=== PATIENT | female | born 1990 | race Caucasian/White ===

== ENCOUNTER 2021-09-17 15:18 | Emergency (ER) | payer SELFPAY ==
[2021-09-17 15:45] VITALS: BP 140/88; PULSE 85; RESP 22; TEMP 36.9; O2SAT 98; BMI 29.2
[2021-09-17 16:01] LABS: UTC Strep Screen (Rapid) Positive (Negative)
--- NOTE | 2021-09-17 16:12 | HMH.EDUTC ---
[facility] [place] Clinical Impression: Strep throat Disposition: Home, Self-Care Condition on Discharge: Good Instructions: DI for Strep Throat, Strep Throat, Amoxicillin Additional Instructions: *Monitor Temp, Over the counter Motrin or Tylenol as directed/as needed Tylenol every 4 hours and Motrin every 6 hours (as long as your family doctor has told you that you can take it) for fever or pain. and straight to ER if unable to lower temp less than 101.0 after medication given *Warm salt water gargles may help to soothe the throat *Throat Lozenges *Warm fluids like tea with honey may help to soothe the throat *Sleep elevated *Humidifier/Vaporizer *If you did not take Penicillin shot or was unable to, start taking antibiotic immediately and make sure that you take it for the FULL length of time although you should start to feel better in 24-48 hours *change toothbrush and toothpaste 24-48 hours after starting to take antibiotics so you do not reinfect yourself Monitor Temp. Tylenol and/or Ibuprofen as needed. ER if fever is no less than 101 despite alternating Tylenol and Ibuprofen * Encourage fluids, water, Gatorade, powerade, pedialyte if /toddler/or child *Cold fluids, popsicles and ice cream may feel good on his throat Follow up IMMEDIATELY for new or worsening symptoms or no Noticeable improvement over the next 48-72 hours. 911 for difficulty breathing or swallowing Prescriptions: Amoxicillin [Amoxicillin 500mg Cap] 500 mg PO BID 10 Days #20 cap Transmission Status: Pending to [facility] Brompheniramine/Pseudoephed/Dm [Bromfed Dm Cough Syrup] 5 - 10 ml PO Q4-6H PRN #200 ml PRN Reason: Cough Transmission Status: Pending to [facility] Referrals: Provider,Referral, MD [Primary Care Provider] - As needed Forms: Work/School Release Time of Disposition: 16:18 Medical Decision Making - Yung Inquiry Pt receiving controlled substance: No Yung was queried for this patient: No Vital Signs: 09/17/21 15:45 Temperature 98.4 F Temperature Source Oral Pulse Rate [Right Brachial] 85 Respiratory Rate 22 Blood Pressure [Right Arm] 140/88 Blood Pressure Mean [Right Arm] 105 Blood Pressure Source [Right Arm] Automatic Cuff Blood Pressure Position [Right Arm] Sitting 02 Sat by Pulse Oximetry 98 Oxygen Delivery Method Room Air - Lab Data Lab results reviewed: Yes: I reviewed the patient's lab results. Lab Results 09/17/21 15:51: Strep Scn Rapid Clinic Positive A Medical Decision Narrative: Patient denies states that last period a couple weeks ago [facility] [place] - General Stated complaint: sore throat, chills, cough and weakness Time Seen by Provider: 09/17/21 16:12 Mode of Arrival: Ambulatory Source of Information: Patient Limitations: No Limitations Description of Symptoms (Recalled from Triage Doc. by RN): PATIENT C/O SORE THROAT, COUGH, CHILLS, AND FATIGUE X 2 DAYS HEENT Symptoms (Recalled from RN notes): Yes Resp Symptoms (Recalled from RN notes): Yes Skin Symptoms (Recalled from RN notes): No MS Symptoms (Recalled from RN notes): No Functional Status (Recalled from RN notes): WNL - History of Present Illness Provider Complaint: Patient states that she has been having cough, sore throat, chills and fever for several days and feels like she may have strep throat so she came in to get checked States that she does want to get tested for COVID just to be safe - Related Data Previous Rx's Medication Instructions Recorded Amoxicillin [Amoxicillin 500mg 500 mg PO BID 10 Days #20 cap 09/17/21 Cap] Brompheniramine/Pseudoephed/Dm 5 - 10 ml PO Q4-6H PRN #200 ml 09/17/21 [Bromfed Dm Cough Syrup] Allergies Allergy/AdvReac Type Severity Reaction Status Date / Time No Known Allergies Allergy Verified 09/17/21 16:05 - Worker's Comp Is this a Worker's Comp case?: No [facility] [place] History - Hepatitis A Screen Attestation statement:: Sharon pa
[2021-09-17 16:20] VITALS: BP 140/88; PULSE 85; RESP 22; TEMP 36.9; O2SAT 98
== END 2021-09-17 16:27 | disposition home or self-care (01) ==
PROVIDERS: Emergency Provider Nurse Practitioner
DX: U07.1 COVID-19 (principal); J02.9 Acute pharyngitis, unspecified
CPT/HCPCS: 87880; 99212; C9803; G0463; U0003; U0005